=== PATIENT | female | born 1980 | race Hispanic/Latino ===

== ENCOUNTER 2017-06-05 00:23 | Emergency (ER) | payer BC | END 2017-06-05 01:38 | disposition home or self-care (01) | LOC: EDH 00:23 | DX: M25.572 Pain in left ankle and joints of left foot (principal); M19.90 Unspecified osteoarthritis, unspecified site | CPT/HCPCS: 73610 ==

== ENCOUNTER 2017-07-12 10:06 | Emergency (ER) | payer BC ==
[2017-07-12 11:12] LABS: APPEARANCE,URINE Clear (CLEAR); BILIRUBIN,URINE Negative (NEGATIVE); COLOR,URINE Dark Yellow (YELLOW); GLUCOSE, URINE (UA) Negative (NEGATIVE); KETONES,URINE Trace mg/dL (NEGATIVE); LEUKOCYTE ESTERASE ,URINE Negative (NEGATIVE); NITRATE,URINE Negative (NEGATIVE); OCCULT BLOOD,URINE Large (NEGATIVE); PH,URINE 5.5 (5.0-8.0); PROTEIN,URINE POS 1+ (NEGATIVE)
[2017-07-12 11:15] LABS: HCG,QUAL RESULT NEGATIVE (NEGATIVE)
[2017-07-12 11:16] LABS: BASOPHILS % (AUTO) 0.4 % (0.0-5.0); EOSINOPHILS % (AUTO) 1.2 % (0.0-8.0); HEMATOCRIT 37.1 % (36-48); LYMPHOCYTES % (AUTO) 22.5 % (21.0-51.0); MEAN CORPUSCULAR HEMOGLOBIN 29.8 pg (27.0-33.0); MEAN CORPUSCULAR HGB CONC 34.1 g/dL (32.0-36.0); MEAN CORPUSCULAR VOLUME 87.3 fL (79-99); MONOCYTES % (AUTO) 9.1 % (3.0-13.0); NEUTROPHILS % (AUTO) 66.8 % (40.0-77.0); PLATELET COUNT (AUTO) 265 K/uL (130-400); RED BLOOD CELL COUNT(AUTO) 4.25 MIL/uL (4.00-5.50); RED CELL DISTRIBUTION WIDTH 13.5 % (11.0-15.5); WHITE BLOOD COUNT (AUTO) 7.4 K/uL (4.8-10.8)
[2017-07-12 11:19] LABS: CREATININE 0.7 mg/dL (0.5-1.5); POTASSIUM 3.5 mmol/L (3.5-5.1)
[2017-07-12 11:20] LABS: BACTERIA,URINE Few /HPF (None Seen); MUCUS,URINE Moderate LPF (None Seen); RBC,URINE 26-50 /HPF (0-1); SQUAMOUS EPITHELIAL CELL,UR Few /HPF (0-2); WBC,URINE 0-1 /HPF (0-1)
[2017-07-12 11:23] LABS: ALBUMIN 3.2 g/dL (3.5-5.0); BILIRUBIN,TOTAL 0.3 mg/dL (0.2-1.0)
[2017-07-12] MEDS ORDERED: CEFTRIAXONE SODIUM 500 MG VIAL ONE (14:12)
[2017-07-12] MEDS ORDERED: LIDOCAINE HCL-MPF 1% 2ML VIAL ONE (14:12)
[2017-07-12] MEDS ORDERED: AZITHROMYCIN 250 MG TABLET PO ONE (14:13)
== END 2017-07-12 15:45 | disposition home or self-care (01) ==
LOC: EDH 10:06
DX: N93.9 Abnormal uterine and vaginal bleeding, unspecified (principal); R10.9 Unspecified abdominal pain; M19.90 Unspecified osteoarthritis, unspecified site; N80.9 Endometriosis, unspecified; M79.7 Fibromyalgia; Z98.890 Other specified postprocedural states
CPT/HCPCS: 36415; 76856; 80053; 81001; 81025; 85025; 87210; 87486; 87797; 96372; 99285; J0696; J3490

== ENCOUNTER 2018-05-09 23:28 | Emergency (ER) | payer BC ==
[2018-05-10] LABS: APPEARANCE,URINE Clear (CLEAR); BILIRUBIN,URINE Negative (NEGATIVE); COLOR,URINE Yellow (YELLOW); GLUCOSE, URINE (UA) Negative (NEGATIVE); KETONES,URINE Negative (NEGATIVE); LEUKOCYTE ESTERASE ,URINE Negative (NEGATIVE); NITRATE,URINE Negative (NEGATIVE); OCCULT BLOOD,URINE Moderate (NEGATIVE); PROTEIN,URINE POS 1+ mg/dL (NEGATIVE)
[2018-05-10 00:02] LABS: HCG,QUAL RESULT NEGATIVE (NEGATIVE)
[2018-05-10 00:08] LABS: BACTERIA,URINE None Seen /HPF (None Seen); MUCUS,URINE Moderate LPF (None Seen); SQUAMOUS EPITHELIAL CELL,UR Moderate /HPF (0-2); WBC,URINE None Seen /HPF (0-1)
[2018-05-10] MEDS ORDERED: IOHEXOL-350 75 ML VIAL IV ONE (01:09)
[2018-05-10 01:25] LABS: BASOPHILS % (AUTO) 1.3 % (0.0-5.0); EOSINOPHILS % (AUTO) 1.1 % (0.0-8.0); HEMATOCRIT 37.3 % (36-48); LYMPHOCYTES % (AUTO) 21.7 % (21.0-51.0); MEAN CORPUSCULAR HEMOGLOBIN 28.4 pg (27.0-33.0); MEAN CORPUSCULAR HGB CONC 33.6 g/dL (32.0-36.0); MEAN CORPUSCULAR VOLUME 84.5 fL (79-99); MONOCYTES % (AUTO) 5.6 % (3.0-13.0); NEUTROPHILS % (AUTO) 70.3 % (40.0-77.0); PLATELET COUNT (AUTO) 280 K/uL (130-400); RED BLOOD CELL COUNT(AUTO) 4.41 MIL/uL (4.00-5.50); RED CELL DISTRIBUTION WIDTH 15.8 % (11.0-15.5); WHITE BLOOD COUNT (AUTO) 9.7 K/uL (4.8-10.8)
[2018-05-10 01:36] LABS: CREATININE 0.7 mg/dL (0.5-1.5); POTASSIUM 3.9 mmol/L (3.5-5.1)
[2018-05-10 01:41] LABS: ALBUMIN 3.5 g/dL (3.5-5.0); BILIRUBIN,TOTAL 0.2 mg/dL (0.2-1.0); TOTAL PROTEIN, SERUM 7.2 g/dL (6.0-8.3)
== END 2018-05-10 04:52 | disposition home or self-care (01) ==
LOC: EDH 23:28
DX: S80.02XA Contusion of left knee, initial encounter (principal); S20.229A Contusion of unspecified back wall of thorax, initial encounter; T14.8XXA Other injury of unspecified body region, initial encounter; M62.838 Other muscle spasm; M54.2 Cervicalgia; N93.9 Abnormal uterine and vaginal bleeding, unspecified; W18.39XA Other fall on same level, initial encounter; Y93.89 Activity, other specified; Y92.89 Other specified places as the place of occurrence of the external cause; Y99.8 Other external cause status
CPT/HCPCS: 36415; 72040; 73562; 74177; 80053; 81001; 81025; 82550; 83690; 85025; 99285; Q9967

== ENCOUNTER 2019-01-28 00:24 | Emergency (ER) | payer BC ==
[2019-01-28] MEDS ORDERED: HYDROCODONE/ACETAMINOPHEN 5/325 MG TAB ONE (00:44)
[2019-01-28] MEDS ORDERED: ONDANSETRON ODT 4 MG TAB ONE (00:44)
== END 2019-01-28 01:41 | disposition home or self-care (01) ==
LOC: EDH 00:24
DX: S80.02XA Contusion of left knee, initial encounter (principal); S80.01XA Contusion of right knee, initial encounter; M79.7 Fibromyalgia; M19.90 Unspecified osteoarthritis, unspecified site; Z98.890 Other specified postprocedural states; W18.39XA Other fall on same level, initial encounter; Y93.89 Activity, other specified; Y92.098 Other place in other non-institutional residence as the place of occurrence of the external cause; Y99.8 Other external cause status
CPT/HCPCS: 73562

== ENCOUNTER 2023-07-23 04:39 | Emergency (ER) | payer BC, OTHER ==
[~2023-07-23] VITALS: Ht 162.6 cm; Wt 136.1 kg
[2023-07-23] MEDS: KETOROLAC 15MG/ML VIAL (15MG/ML) IM ONE (05:26)
[2023-07-23] MEDS: HYDROMORPHONE 2 MG VIAL (2MG/ML) IVP ONE (06:12)
[2023-07-23] MEDS: SOLU-MEDROL 125MG VIAL IVP ONE (06:12)
[2023-07-23] MEDS ORDERED: NAPR375T6 PO (08:41)
[2023-07-23] MEDS: ONDANSETRON 4MG INJ IVP ONE (09:12)
[2023-07-23] MEDS: ONDANSETRON ODT 4MG TAB SL ONE (09:16)
[2023-07-23 09:17] VITALS: BP 118/56; PULSE 78; RESP 18; O2SAT 96
== END 2023-07-23 09:19 | disposition home or self-care (01) ==
LOC: EDH 04:39
DX: S89.81XA Other specified injuries of right lower leg, initial encounter (principal); X58.XXXA Exposure to other specified factors, initial encounter; Y93.89 Activity, other specified; Y92.89 Other specified places as the place of occurrence of the external cause; Y99.8 Other external cause status
CPT/HCPCS: 99284; 96374; 29505; 96375; 73562; 96372; J2919; J1885; J1170; J2405